=== PATIENT | male | born 1985 ===

== ENCOUNTER 2021-06-23 16:48 | Emergency (ER) | payer OTHER ==
[~2021-06-23] VITALS: Ht 170.2 cm; Wt 70.3 kg
[2021-06-23] MEDS ORDERED: ONDA4ODT MM (18:48)
[2021-06-23] MEDS ORDERED: OXAYDO5 M1 PO (18:48)
== END 2021-06-23 18:59 | disposition home or self-care (01) ==
LOC: ER 16:48
DX: S52.571A Other intraarticular fracture of lower end of right radius, initial encounter for closed fracture (principal); S52.611A Displaced fracture of right ulna styloid process, initial encounter for closed fracture; S42.001A Fracture of unspecified part of right clavicle, initial encounter for closed fracture; Z88.0 Allergy status to penicillin; V86.99XA Unspecified occupant of other special all-terrain or other off-road motor vehicle injured in nontraffic accident, initial encounter
CPT/HCPCS: 73000; 73110; A9270